=== PATIENT | female | born 1995 | race Caucasian/White ===

== ENCOUNTER 2017-07-11 11:34 | Emergency (ER) | payer OTHER ==
[~2017-07-11] VITALS: Ht 172.7 cm; Wt 54.8 kg
[~2017-07-11 11:34] MED LIST: IBUP-103 PO
[2017-07-11 11:43] VITALS: TEMP 36.6; Ht 172.7 cm; Wt 54.8 kg
[2017-07-11] MEDS ORDERED: SODIUM CHLORIDE 0.9% 1000ML 1,000 ML IV STA (13:08)
[2017-07-11 13:11] VITALS: O2SAT 99
[2017-07-11 14:09] LABS: BUN/CREATININE RATIO 8.5 (10-20); CALCIUM 8.9 mg/dl (8.5-10.1); CREATININE 0.92 mg/dl (0.60-1.20); POTASSIUM 3.4 mmol/L (3.5-5.1)
[2017-07-11 14:09] LABS: URINE APPEARANCE CLEAR (CLEAR); URINE BILIRUBIN NEG (NEG); URINE COLOR DK YELLOW; URINE NITRITE NEG (NEG); URINE PH 7.5 (4.5-7.5); URINE SPECIFIC GRAVITY 1.017 (1.000-1.030); UROBILINOGEN NEG (NEG)
[2017-07-11 14:11] LABS: PREG INTERNAL NEGATIVE QC NEG CLEAR BACKGROUND; PREG INTERNAL POSITIVE QC POS CONTROL LINE
--- NOTE | 2017-07-11 14:11 | EMERGENCY ROOM VISIT NOTE ---
History First contact with patient: 12:43 Chief Complaint: SHORTNESS OF BREATH Stated Complaint: CHEST PAIN, SOB,TREMBLING,DIZZY,RAPID HEARTBEAT Nursing Triage Summary: Pt c/o CP and SOB that started yesterday. Denies PE history, clarified that her blood clot history was a vaginal blood clto after taking plan B. History of Present Illness The patient is a 22 year old female who presents to the Emergency Room with complaints of shortness of breath and intermittent chest pain with dizziness and palpitations that started yesterday and got worse today. Patient states yesterday she took Plan B around 2 PM. Her symptoms started around 6 PM. She does note intermittent symptoms of palpitations earlier this week that seems associated with drinking a lot of caffeine. She states she was drinking caffeine last night around the time that her symptoms started as well. She states that all of her symptoms are currently resolved. Chest pain and shortness of breath are not worse with movements, deep breaths, laying flat, or with exertion. Patient denies any headaches, vision changes, fevers or chills, syncope, back pain, abdominal pain, nausea or vomiting, changes in bowel habits , dysuria or urinary frequency, abnormal vaginal bleeding, or rash. Review of Systems A complete 10 point review of systems was reviewed with the patient with pertinent positives and negatives as per history of present illness. All else were negative. Past Medical/Surgical History Medical Problems: (1) Bulimia Family History No significant family history Social History Smoking Status: Never Smoker Alcohol Use: occasionally Drug Use: none Housing Status: lives with roommate Occupation Status: [employer] student Current/Historical Medications No Active Prescriptions or Reported Meds Physical Exam Vital Signs Date Time Temp Pulse Resp B/P (MAP) Pulse Ox O2 Delivery O2 Flow Rate FiO2 07/11/17 16:34 91 18 101/62 99 Room Air 07/11/17 16:15 74 07/11/17 15:58 71 16 103/65 99 Room Air 07/11/17 14:25 78 16 100/64 100 Room Air 07/11/17 13:12 77 18 113/71 98 Room Air 07/11/17 13:11 99 Room Air 07/11/17 13:11 98 Room Air 07/11/17 12:15 94 Room Air 07/11/17 12:14 93 07/11/17 11:43 36.6 123 24 157/88 94 Room Air Physical Exam CONSTITUTIONAL: No acute distress. Well hydrated, well appearing and well nourished. Alert and oriented X 4 with normal affect. HEENT: Normocephalic, atraumatic. Pupils equal, round and reactive to light, EOMI. TMs normal. Pharynx normal. Moist mucous membranes NECK: Supple, full active range of motion without discomfort. RESPIRATORY: Clear to auscultation bilaterally with no wheezing, crackles, rhonchi or stridor. Equal expansion bilaterally. CARDIOVASCULAR: Regular rate and rhythm with no murmurs, rubs or gallops. Normal peripheral perfusion. No edema. CHEST WALL: No tenderness to palpation of the chest wall. No ecchymosis or erythema. No crepitus. GASTROINTESTINAL: Soft, nontender, nondistended. Bowel sounds present in all quadrants. MUSCULOSKELETAL: Full range of motion of all joints without discomfort. INTEGUMENTARY: No rash or other significant dermatologic conditions noted. NEUROLOGIC: Cranial nerves II-XII grossly intact. No focal neurologic deficits noted. Medical Decision & Procedures Laboratory Results 07/11/17 12:10 Red Blood Count 5.05, Mean Corpuscular Volume 80.2, Mean Corpuscular Hemoglobin 25.5, Mean Corpuscular Hemoglobin Concent 31.9, Mean Platelet Volume 12.1, Neutrophils (%) (Auto) 78.0, Lymphocytes (%) (Auto) 13.6, Monocytes (%) (Auto) 5.4, Eosinophils (%) (Auto) 2.0, Basophils (%) (Auto) 0.8, Neutrophils # (Auto) 4.60, Lymphocytes # (Auto) 0.80, Monocytes # (Auto) 0.32, Eosinophils # (Auto) 0.12, Basophils # (Auto) 0.05 07/11/17 12:10 Test 07/11/17 00:00 07/11/17 12:10 Urine Color DK YELLOW Urine Appearance CLEAR (CLEAR) Urine pH 7.5 (4.5-7.5) Urine Specific [place] 1.017 (1.000-1.030) Urine Protein NEG (NEG) Urine Glucose (UA) NEG (NEG) Urine Ketones NEG (NEG) Urine Occult Blood NEG (NEG) Urine Nitrite NEG (NEG) Urine Bilirubin NEG (NEG) Urine Urobilinogen NEG (NEG) Urine Leukocyte Esterase NEG (NEG) Urine Test NEG (NEG) White Blood Count 5.90 K/uL (4.8-10.8) Red Blood Count 5.05 M/uL (4.2-5.4) Hemoglobin 12.9 g/dL (12.0-16.0) Hematocrit 40.5 % (37-47) Mean Corpuscular Volume 80.2 fL (80-100) Mean Corpuscular Hemoglobin 25.5 pg (25-34) Mean Corpuscular Hemoglobin Concent 31.9 g/dl (32-36) Platelet Count 188 K/uL (130-400) Mean Platelet Volume 12.1 fL (7.4-10.4) Neutrophils (%) (Auto) 78.0 % Lymphocytes (%) (Auto) 13.6 % Monocytes (%) (Auto) 5.4 % Eosinophils (%) (Auto) 2.0 % Basophils (%) (Auto) 0.8 % Neutrophils # (Auto) 4.60 K/uL (1.4-6.5) Lymphocytes # (Auto) 0.80 K/uL (1.2-3.4) Monocytes # (Auto) 0.32 K/uL (0.11-0.59) Eosinophils # (Auto) 0.12 K/uL (0-0.5) Basophils # (Auto) 0.05 K/uL (0-0.2) RDW Standard Deviation 45.8 fL (36.4-46.3) RDW Coefficient of Variation 15.8 % (11.5-14.5) Immature Granulocyte % (Auto) 0.2 % Immature Granulocyte # (Auto) 0.01 K/uL (0.00-0.02) Giant Platelets 1+ D-Dimer 380 ug/L FEU (0-500) Anion Gap 6.0 mmol/L (3-11) Est Creatinine Clear Calc Drug Dose 83.7 ml/min Estimated GFR () 103.2 Estimated GFR (Non- 89.0 BUN/Creatinine Ratio 8.5 (10-20) Calcium Level 8.9 mg/dl (8.5-10.1) Medications Administered Medications (Trade) Dose Ordered Sig/Chepe Route Start Time Stop Time Status Last Admin Dose Admin Sodium Chloride 1,000 ml @ 999 mls/hr Q1H1M STAT IV 07/11/17 13:08 07/11/17 14:08 DC 07/11/17 13:16 999 MLS/HR Medical Decision CC: Patient presenting with complaint of intermittent shortness of breath, chest pain, palpitations Interpretation of Labs: No leukocytosis, no anemia, no significant electrolyte abnormalities, normal renal function, negative d-dimer. No UTI, negative urine . Differential Diagnosis: Includes, but not limited to heart palpitations, arrhythmia, medication reaction, anxiety, PE less likely. Medication Reconciliation: I attest that I have personally reviewed the patient' s current medication list. Vital signs review: I reviewed the patient's vital signs and interpret them as follows: T: Afebrile; BP: Normotensive; HR: Within normal limits; RR: Within normal limits; Pulse Ox: Within normal limits on room air. Blood pressure screening: The patient was found to have normal blood pressure on screening and does not require follow-up for repeat blood pressure check. Summary: Patient was evaluated at bedside, history of physical exam performed. Vital signs reviewed in nursing documentation, suspect these were entered in error. On my initial assessment of the patient vital signs, she is not tachycardic, not tachypneic, not hypertensive, and not hypoxic. Patient is alert and oriented, in no acute distress, resting in the stretcher. She does appear slightly anxious. Patient states all of her symptoms are currently resolved. Her lungs are clear. Her chest pain is not reproducible with palpation or deep breath. She has no calf swelling or tenderness. Orders were placed at bedside for labs including d-dimer, UA, and IV fluids for hydration. Patient discussed with Dr. Posada, who agrees with my assessment and plan. Labs reviewed as above, unremarkable. EKG reviewed, NSR and no changes from previous. Patient is low risk for PE by well's criteria and D-dimer negative. I do not suspect PE at this time. 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 Patient was encouraged to follow up closely with her PCP symptoms persist. She was also given return precautions, she verbalized understanding. Patient was discharged home in stable condition and ambulatory. Impression Primary Impression: Palpitations Additional Impression: Shortness of breath Departure Information Dispostion Home / Self-Care Condition GOOD Prescriptions No Active Prescriptions or Reported Meds Referrals [facility] (PCP) Patient Instructions ED Palpitations, My [facility] Additional Instructions Drink plenty of fluids to stay well hydrated. Avoid caffeine, as this may be exacerbating your symptoms. Follow-up with your PCP in the next few days. If your symptoms persist, you may need to have a Holter monitor test done. This should be done by your PCP. Please return to the emergency department for worsening symptoms, including severe or constant chest pain, increasing shortness of breath, severe dizziness or passing out, coughing up blood, if you develop fever/chills, or any other concerns. Problem Qualifiers
[2017-07-11 14:18] LABS: MANUAL MICROSCOPIC REQUIRED? NO; REVIEW REQ? NO
[2017-07-11 14:35] LABS: BASO % 0.8 %; BASO ABS # 0.05 K/uL (0-0.2); HEMATOCRIT 40.5 % (37-47); IG% 0.2 %; LYMPH % 13.6 %; MEAN CELL VOLUME 80.2 fL (80-100); MEAN CORPUSCULAR HEMOGLOBIN 25.5 pg (25-34); MEAN CORPUSCULAR HGB CONC 31.9 g/dl (32-36); MEAN PLATELET VOLUME 12.1 fL (7.4-10.4); MONO % 5.4 %; PLATELET COUNT 188 K/uL (130-400); RED BLOOD COUNT 5.05 M/uL (4.2-5.4)
[2017-07-11 15:09] LABS: COMPLETE YES; GIANT PLATELETS 1+
[2017-07-11 16:34] VITALS: BP 101/62; PULSE 91; O2SAT 99
== END 2017-07-11 16:40 | disposition home or self-care (01) ==
LOC: C.EDB 11:36
DX: R00.2 Palpitations (principal); R06.02 Shortness of breath; F50.2 Bulimia nervosa